=== PATIENT | female | born 1980 | race Two or more races ===

== ENCOUNTER 2020-06-10 06:28 | Inpatient (IN) | payer OTHER ==
[~2020-06-10] VITALS: Ht 157.5 cm; Wt 50.8 kg
[2020-06-10] MEDS ORDERED: PRENATAL CAPLE1 EAC1 PO (06:59)
== END 2020-06-11 11:21 | disposition home or self-care (01) | DRG 833 ==
LOC: LDR 06:28 → OB/GYN 16:11
PROVIDERS: ADMIT Obstetrics & Gynecology Maternal & Fetal Medicine; ATTEND Obstetrics & Gynecology Maternal & Fetal Medicine
PROC: 10A07ZX Abortion of Products of Conception, Abortifacient, Via Natural or Artificial Opening (ICD-10-PCS; principal; 2020-06-10)
DX: O35.1XX0 Maternal care for (suspected) chromosomal abnormality in fetus, not applicable or unspecified (principal); Z3A.15 15 weeks gestation of pregnancy; Z20.822 Contact with and (suspected) exposure to COVID-19

== ENCOUNTER 2024-09-03 19:02 | Emergency (ER) | payer OTHER ==
[~2024-09-03] VITALS: Ht 157.5 cm; Wt 56.7 kg
[~2024-09-03 19:02] MED LIST: PRENATAL CAPLE1 EAC1 PO
[2024-09-03] MEDS ORDERED: KETOROLAC TROMETHAMINE 60 MG VIAL IM STA (21:14)
[2024-09-03] MEDS ORDERED: TRAMADOL HCL 50 MG TABLET PO STA (21:14)
[2024-09-03] MEDS ORDERED: CLINDAMYCIN PHOSPHATE 150 MG/ML (600mg) IM STA (21:14)
== END 2024-09-03 22:10 | disposition home or self-care (01) ==
LOC: ER 19:32
DX: L03.114 Cellulitis of left upper limb (principal); S60.572A Other superficial bite of hand of left hand, initial encounter; W54.0XXA Bitten by dog, initial encounter; Y93.89 Activity, other specified; Y92.018 Other place in single-family (private) house as the place of occurrence of the external cause